=== PATIENT | male | born 1985 | race American Indian/Alaskan Native ===

== ENCOUNTER 2020-01-30 18:37 | Emergency (ER) | payer OTHER ==
[2020-01-30 18:51] VITALS: BP 121/75
[2020-01-30 19:42] LABS: Basophils # (Auto) 0.1 K/mm3 (0.0-0.1); Eosinophils # (Auto) 0.3 K/mm3 (0.0-0.4); Eosinophils % (Auto) 4.3 % (0.0-4.3); Hematocrit 27.5 % (35.5-45.6); Hemoglobin 8.8 gm/dl (11.8-15.2); Lymphocytes # (Auto) 1.2 K/mm3 (1.2-5.4); Lymphocytes % (Auto) 17.3 % (13.4-35.0); Mean Corpuscular HGB Conc 32 % (32-34); Mean Corpuscular Volume 89 fl (84-94); Platelet Count 225 K/mm3 (140-440); Red Blood Count 3.08 M/mm3 (3.65-5.03); Red Cell Distribution Width 16.5 % (13.2-15.2)
[2020-01-30 19:46] LABS: Calcium 9.5 mg/dL (8.4-10.2)
--- NOTE | 2020-01-30 19:48 | XRay Report ---
CHEST 2 VIEWS INDICATION / CLINICAL INFORMATION: left neck vas cath dislodged. COMPARISON: None available. FINDINGS: SUPPORT DEVICES: Left IJ central venous catheter appears appropriate position with the tip projecting over the superior cavoatrial junction. HEART / MEDIASTINUM: No significant abnormality. LUNGS / PLEURA: No significant pulmonary or pleural abnormality. No pneumothorax. ADDITIONAL FINDINGS: No significant additional findings. IMPRESSION: 1. Left IJ central venous catheter appears well-positioned. Signer Name: Iglesia Oconnor MD Signed: 01/30/2020 7:43 PM Workstation Name: [id number]
--- NOTE | 2020-01-30 21:45 | Emergency Department Report ---
ED General Adult HPI - General Chief complaint: Medical Clearance Stated complaint: DIALYSIS PORT COMING OUT PUI?: No Time Seen by Provider: 01/30/20 20:37 Source: patient, EMS Mode of arrival: Wheelchair Limitations: No Limitations - History of Present Illness Initial comments: Mr. Ortiz is a 34-year-old male with history of end-stage renal disease on hemodialysis Saturday. He was told by hemodialysis nurse that the Vas-Cath appeared to be dislodged. He has a Vas-Cath inserted at the left IJ internal jugular vein. The Vas-Cath was placed at [facility]. He states that the Vas-Cath appears to be in normal position. He denies any bleeding or trauma. He does not know the name of his salvationist. He was unable to get dialysis today. -: This evening Location: neck Severity scale (0 -10): 0 Improves with: none Worsens with: none Associated Symptoms: denies other symptoms - Related Data Allergies Allergy/AdvReac Type Severity Reaction Status Date / Time No Known Allergies Allergy Unverified 01/30/20 18:47 ED Review of Systems ROS: Stated complaint: DIALYSIS PORT COMING OUT Other details as noted in HPI Comment: All other systems reviewed and negative Constitutional: denies: fever, malaise Respiratory: denies: cough, shortness of breath Cardiovascular: denies: chest pain ED Past Medical Hx - Past Medical History Previous Medical History?: Yes Hx Hypertension: Yes Hx Renal Disease: Yes (HD , , Sat) - Surgical History Past Surgical History?: No - Social History Smoking Status: Never Smoker Substance Use Type: None ED Physical Exam - General Limitations: No Limitations General appearance: alert, in no apparent distress - Head Head exam: Present: atraumatic, normocephalic - Eye Eye exam: Present: normal appearance - ENT ENT exam: Present: mucous membranes moist - Neck Neck exam: Present: normal inspection, full ROM, other (Vas-Cath inserted at the left neck, taped down without sutures) - Respiratory Respiratory exam: Present: normal lung sounds bilaterally. Absent: respiratory distress, wheezes, rales, rhonchi, stridor - Cardiovascular Cardiovascular Exam: Present: regular rate, normal rhythm, normal heart sounds. Absent: systolic murmur, diastolic murmur, rubs, gallop - GI/Abdominal GI/Abdominal exam: Present: soft, normal bowel sounds. Absent: distended, tenderness, guarding, rebound - Rectal Rectal exam: Present: deferred - Extremities Exam Extremities exam: Present: normal inspection - Neurological Exam Neurological exam: Present: alert, oriented X3 - Psychiatric Psychiatric exam: Present: normal affect, normal mood - Skin Skin exam: Present: warm, dry, intact, normal color. Absent: rash ED Course Vital Signs 01/30/20 18:49 Temperature 98.5 F Pulse Rate 83 Respiratory 20 Rate Blood Pressure 121/75 O2 Sat by Pulse 99 Oximetry ED Medical Decision Making - Lab Data Result diagrams: 01/30/20 19:00 01/30/20 19:00 - Radiology Data Radiology results: report reviewed, image reviewed CHEST 2 VIEWS INDICATION / CLINICAL INFORMATION: left neck vas cath dislodged. COMPARISON: None available. FINDINGS: SUPPORT DEVICES: Left IJ central venous catheter appears appropriate position with the tip projecting over the superior cavoatrial junction. HEART / MEDIASTINUM: No significant abnormality. LUNGS / PLEURA: No significant pulmonary or pleural abnormality. No pneumothorax. ADDITIONAL FINDINGS: No significant additional findings. IMPRESSION: 1. Left IJ central venous catheter appears well-positioned. - Medical Decision Making On exam, vascath at the left IJ does not appear dislodged. Chest radiograph confirms that permacath is in appropriate position. Potassium is 3.9. No respiratory distress. No indication for emergent dialysis. Patient will go to his home dialysis center on Saturday. Critical care attestation.: If time is entered above; I have spent that time in minutes in the direct care of this critically ill patient, excluding procedure time. ED Disposition Clinical Impression: Problem with dialysis access Disposition: - TO HOME OR SELFCARE Is pt being admited?: No Does the pt Need Aspirin: No Condition: Stable Additional Instructions: According to chest x-ray, your Vas-Cath peramacath is in normal position.
== END 2020-01-30 21:58 | disposition home or self-care (01) ==
LOC: ED 18:37
DX: T82.898A Other specified complication of vascular prosthetic devices, implants and grafts, initial encounter (principal); I10 Essential (primary) hypertension; Y92.89 Other specified places as the place of occurrence of the external cause
CPT/HCPCS: 36415; 71046; 80048; 85025